=== PATIENT | female | born 1995 | race Caucasian/White ===

== ENCOUNTER 2017-06-07 19:06 | Emergency (ER) | payer SELFPAY | END 2017-06-07 20:11 | disposition home or self-care (01) | LOC: D.ER 19:06 | DX: Z00.00 Encounter for general adult medical examination without abnormal findings (principal) ==

== ENCOUNTER 2018-01-02 17:47 | Emergency (ER) | payer SELFPAY ==
[~2018-01-02] VITALS: Ht 149.9 cm; Wt 93.2 kg
[2018-01-02 18:18] VITALS: Ht 149.9 cm; Wt 93.2 kg
[2018-01-02] MEDS ORDERED: CLEOCIN HCL300 MG PO (19:42)
[2018-01-02] MEDS ORDERED: TORADOL10 MG PO (19:42)
[2018-01-02 20:15] VITALS: BP 141/81
[2018-01-03] MEDS ORDERED: TYLENOL W/CODEI1 TAB PO (16:03)
[2018-01-03] MEDS ORDERED: PENICILLIN V P500 MG PO (16:03)
== END 2018-01-02 20:15 | disposition home or self-care (01) ==
LOC: D.ER 17:47
DX: K04.7 Periapical abscess without sinus (principal); K08.89 Other specified disorders of teeth and supporting structures; F17.200 Nicotine dependence, unspecified, uncomplicated

== ENCOUNTER 2018-01-03 15:04 | Emergency (ER) | payer SELFPAY ==
[~2018-01-03] VITALS: Ht 149.9 cm; Wt 95.5 kg
[~2018-01-03 15:04] MED LIST: CLEOCIN HCL300 MG PO; TORADOL10 MG PO
[2018-01-03 15:21] VITALS: Ht 149.9 cm; Wt 95.5 kg
[2018-01-03] MEDS ORDERED: TYLENOL W/CODEI1 TAB PO (16:03)
[2018-01-03] MEDS ORDERED: PENICILLIN V P500 MG PO (16:03)
[2018-01-03 16:16] VITALS: BP 124/64
== END 2018-01-03 16:16 | disposition home or self-care (01) ==
LOC: D.ER 15:04
DX: K08.89 Other specified disorders of teeth and supporting structures (principal); K04.7 Periapical abscess without sinus; F17.200 Nicotine dependence, unspecified, uncomplicated

== ENCOUNTER 2018-03-16 22:12 | Emergency (ER) | payer OTHER ==
[~2018-03-16] VITALS: Ht 149.9 cm; Wt 100.0 kg
[~2018-03-16 22:12] MED LIST changes: +PENICILLIN V P500 MG PO; +TYLENOL W/CODEI1 TAB PO
[2018-03-16 22:14] VITALS: Ht 149.9 cm; Wt 100.0 kg
[2018-03-16 23:16] LABS: BASOPHILS 0.2 % (0-2); EOSINOPHILS 0.4 % (0-7); HEMOGLOBIN 11.9 g/dL (12-16); IMMATURE GRANULOCYTES 0.4 % (0-5); LYMPHOCYTES 11.6 % (15-50); MCH 22.2 pg (26.0-34.0); MCHC 31.3 g/dL (31.0-37.0); MEAN PLATELET VOLUME 9.9 fL (7.4-10.4); MONOCYTES 3.9 % (2-11); NEUTROPHILS 83.5 % (40-80); PLATELET COUNT 417 10x3/uL (130-400); RBC 5.35 10x6/uL (4.00-5.40); RDW 16.6 % (11.5-14.5); WBC 16.7 10x3/uL (4.8-10.8)
[2018-03-16 23:23] LABS: HCG SERUM NEGATIVE (NEGATIVE)
[2018-03-16 23:28] LABS: ALKALINE PHOSPHATASE 60 U/L (46-116); ALT (SGPT) 22 U/L (10-68); BILIRUBIN - TOTAL 0.46 mg/dL (0.2-1.3); CALC OSMOLALITY 281 mosm/kg (275-300); CALCIUM 8.3 mg/dL (8.5-10.1); CARBON DIOXIDE 23.9 mmol/L (21.0-32.0); CHLORIDE - SERUM 104 mmol/L (98-107); CREATININE - SERUM 0.8 mg/dL (0.6-1.3); GLUCOSE 100 mg/dL (74-106); POTASSIUM - SERUM 3.5 mmol/L (3.5-5.1); PROTEIN - SERUM 7.3 g/dL (6.4-8.2); SODIUM 141 mmol/L (136-145); UREA NITROGEN 14 mg/dL (7-18); eGFR NON AFRICAN AMERICAN > 90 mL/min (90-120)
[2018-03-17 00:31] LABS: UDS - AMPHET NEGATIVE QUAL (NEGATIVE); UDS - BARB NEGATIVE QUAL (NEGATIVE); UDS - BENZO NEGATIVE QUAL (NEGATIVE); UDS - COCAINE NEGATIVE QUAL (NEGATIVE); UDS - OPIATE NEGATIVE QUAL (NEGATIVE); UDS - PCP NEGATIVE QUAL (NEGATIVE); UDS - THC NEGATIVE QUAL (NEGATIVE)
[2018-03-17 00:32] LABS: APPEARANCE CLEAR (CLEAR); BACTERIA FEW /hpf (NONE SEEN); BILIRUBIN NEGATIVE (NEGATIVE); COLOR YELLOW (YELLOW); EPITHELIAL CELLS NSEEN /hpf (0-5); GLUCOSE NEGATIVE (NEGATIVE); KETONE NEGATIVE (NEGATIVE); NITRITE NEGATIVE (NEGATIVE); PROTEIN 1+ mg/dL (NEGATIVE); RED CELLS - URINE 0-5 /hpf (0-5); SPECIFIC GRAVITY 1.015 (1.005-1.020); UROBILINOGEN NORMAL (NORMAL); WHITE CELLS - URINE 0-5 /hpf (0-5)
[2018-03-17 04:25] VITALS: BP 132/68
== END 2018-03-17 04:21 | disposition home or self-care (01) ==
LOC: D.ER 22:12
PROVIDERS: Family Medicine
DX: F10.129 Alcohol abuse with intoxication, unspecified (principal)

== ENCOUNTER 2018-09-12 21:18 | Emergency (ER) | payer SELFPAY ==
[~2018-09-12] VITALS: Ht 149.9 cm; Wt 100.0 kg
[2018-09-12 21:26] VITALS: Ht 149.9 cm; Wt 100.0 kg
[2018-09-12] MEDS ORDERED: NAPROSYN500 MG PO (21:53)
[2018-09-12 22:28] VITALS: BP 132/88
== END 2018-09-12 22:29 | disposition home or self-care (01) ==
LOC: D.ER 21:18
DX: S61.411D Laceration without foreign body of right hand, subsequent encounter (principal); X58.XXXD Exposure to other specified factors, subsequent encounter

== ENCOUNTER 2018-09-21 13:10 | Emergency (ER) | payer SELFPAY ==
[~2018-09-21] VITALS: Ht 149.9 cm; Wt 100.0 kg
[~2018-09-21 13:10] MED LIST changes: +NAPROSYN500 MG PO
[2018-09-21 13:17] VITALS: BP 128/79; Ht 149.9 cm; Wt 100.0 kg
== END 2018-09-21 14:18 | disposition home or self-care (01) ==
LOC: D.ER 13:10
DX: S61.411D Laceration without foreign body of right hand, subsequent encounter (principal); X58.XXXD Exposure to other specified factors, subsequent encounter

== ENCOUNTER 2018-10-04 18:10 | Emergency (ER) | payer SELFPAY ==
[2018-10-04 18:15] VITALS: Ht 149.9 cm
[2018-10-04 18:51] VITALS: BP 138/68
== END 2018-10-04 18:53 | disposition home or self-care (01) ==
LOC: D.ER 18:10
DX: S61.210D Laceration without foreign body of right index finger without damage to nail, subsequent encounter (principal); X58.XXXD Exposure to other specified factors, subsequent encounter; Z48.02 Encounter for removal of sutures

== ENCOUNTER 2019-01-18 13:44 | Emergency (ER) | payer OTHER ==
[~2019-01-18] VITALS: Ht 149.9 cm; Wt 118.2 kg
[2019-01-18 13:50] VITALS: BP 146/70; Ht 149.9 cm; Wt 118.2 kg
[2019-01-18] MEDS ORDERED: ETONOGESTREL (13:54)
[2019-01-18] MEDS ORDERED: ALBUTEROL SULF8.5 GM INH (14:23)
[2019-01-18] MEDS ORDERED: NAPROSYN500 MG PO (14:23)
[2019-01-18] MEDS ORDERED: OMNICEF300 MG PO (14:23)
== END 2019-01-18 14:37 | disposition home or self-care (01) ==
LOC: D.ER 13:44
DX: J32.9 Chronic sinusitis, unspecified (principal); J40 Bronchitis, not specified as acute or chronic; H66.91 Otitis media, unspecified, right ear